=== PATIENT | male | born 1990 | race Two or more races ===

== ENCOUNTER 2018-10-26 04:10 | Emergency (ER) | payer OTHER ==
[~2018-10-26] VITALS: Ht 175.3 cm; Wt 91.6 kg
[2018-10-26] MEDS ORDERED: PHENERGAN25 MG PO (08:30)
[2018-10-26] MEDS ORDERED: TESSALON PERLE100 M1 PO (08:30)
[2018-10-26] MEDS ORDERED: OSEL75CA PO (08:30)
[2018-10-26] MEDS ORDERED: KETO10TA2 PO (08:30)
== END 2018-10-26 08:42 ==
LOC: ER 04:10
DX: J06.9 Acute upper respiratory infection, unspecified (principal); J09.X2 Influenza due to identified novel influenza A virus with other respiratory manifestations

== ENCOUNTER 2019-04-23 18:19 | Emergency (ER) | payer OTHER ==
[~2019-04-23] VITALS: Ht 175.3 cm; Wt 90.7 kg
[~2019-04-23 18:19] MED LIST: KETO10TA2 PO; OSEL75CA PO; PHENERGAN25 MG PO; TESSALON PERLE100 M1 PO
== END 2019-04-23 20:11 | disposition home or self-care (01) ==
LOC: ER 18:19
DX: S60.012A Contusion of left thumb without damage to nail, initial encounter (principal); X58.XXXA Exposure to other specified factors, initial encounter; Y93.89 Activity, other specified; Y92.89 Other specified places as the place of occurrence of the external cause; Y99.8 Other external cause status

== ENCOUNTER 2019-05-12 10:41 | Emergency (ER) | payer OTHER ==
[~2019-05-12] VITALS: Ht 175.3 cm; Wt 90.7 kg
== END 2019-05-12 13:09 | disposition home or self-care (01) ==
LOC: ER 10:41
DX: N48.1 Balanitis (principal)

== ENCOUNTER 2019-08-03 18:28 | Emergency (ER) | payer OTHER ==
[~2019-08-03] VITALS: Ht 177.8 cm; Wt 90.7 kg
[2019-08-04] MEDS ORDERED: PROTONIX20 MG PO (00:22)
== END 2019-08-04 01:35 | disposition home or self-care (01) ==
LOC: ER 18:28
DX: K52.89 Other specified noninfective gastroenteritis and colitis (principal); R19.7 Diarrhea, unspecified; R11.0 Nausea; R10.84 Generalized abdominal pain

== ENCOUNTER 2021-06-07 10:51 | Emergency (ER) | payer OTHER ==
[~2021-06-07] VITALS: Ht 177.8 cm; Wt 93.0 kg
[~2021-06-07 10:51] MED LIST changes: +PROTONIX20 MG PO
[2021-06-07] MEDS ORDERED: KETO10TA2 PO (15:47)
== END 2021-06-07 16:37 | disposition home or self-care (01) ==
LOC: ER 10:51
DX: S80.01XA Contusion of right knee, initial encounter (principal); W10.8XXA Fall (on) (from) other stairs and steps, initial encounter; Y93.89 Activity, other specified; Y92.89 Other specified places as the place of occurrence of the external cause; Y99.8 Other external cause status

== ENCOUNTER 2021-09-07 13:41 | Emergency (ER) | payer OTHER ==
[~2021-09-07] VITALS: Ht 177.8 cm; Wt 92.5 kg
[2021-09-07] MEDS ORDERED: PROTONIX40 MG PO (18:49)
== END 2021-09-07 19:13 | disposition home or self-care (01) ==
LOC: ER 13:41
DX: R10.13 Epigastric pain (principal); K29.60 Other gastritis without bleeding; R10.9 Unspecified abdominal pain

== ENCOUNTER 2022-04-22 19:02 | Emergency (ER) | payer OTHER ==
[~2022-04-22] VITALS: Ht 177.8 cm; Wt 95.3 kg
[~2022-04-22 19:02] MED LIST changes: +PROTONIX40 MG PO
== END 2022-04-22 22:06 | disposition home or self-care (01) ==
LOC: ER 19:02
DX: J32.9 Chronic sinusitis, unspecified (principal); R51.9 Headache, unspecified; Z20.822 Contact with and (suspected) exposure to COVID-19

== ENCOUNTER 2023-01-13 08:13 | Emergency (ER) | payer OTHER ==
[~2023-01-13] VITALS: Ht 177.8 cm; Wt 97.5 kg
== END 2023-01-13 15:43 | disposition home or self-care (01) ==
LOC: ER 08:13
DX: K52.9 Noninfective gastroenteritis and colitis, unspecified (principal); Z20.822 Contact with and (suspected) exposure to COVID-19